=== PATIENT | female | born 1965 | race Caucasian/White ===

== ENCOUNTER 2021-03-11 03:59 | Emergency (ER) ==
[2021-03-11] MEDS ORDERED: Lidocaine 2% PF 5 ML VIAL ONE (04:11)
[2021-03-11] MEDS ORDERED: Lidocaine Viscous Sol 2% 15 ml UD Cup ONE (04:12)
== END 2021-03-11 04:56 | disposition home or self-care (01) ==
LOC: ERS 03:59
DX: T16.1XXA Foreign body in right ear, initial encounter (principal); J45.909 Unspecified asthma, uncomplicated; F17.200 Nicotine dependence, unspecified, uncomplicated; W45.8XXA Other foreign body or object entering through skin, initial encounter
CPT/HCPCS: 69200; J2001